=== PATIENT | male | born 1985 | race Caucasian/White ===

== ENCOUNTER 2022-07-29 11:37 | Emergency (ER) | payer SELFPAY ==
[~2022-07-29] VITALS: Ht 175.3 cm; Wt 103.0 kg
[~2022-07-29 11:37] MED LIST: NO MEDS
[2022-07-29 11:59] VITALS: BP 123/69
--- NOTE | 2022-07-29 12:43 | NUR ---
36M presents to ED with c/o bloody stool x4 days and intermittent ABD pain x1year. Pt reports bilateral upper quadrant, stabbing like, ABD pain. Pt reports noting dark red stool on Tuesday, and noted purely blood during a BM yesterday, intermittent diarrhea, last episode was last night. Pt denies taking meds, denies N/V, and fevers. Bowel sounds noted in all four quadrants, and abdomen soft and non tender upon palpation.
[2022-07-29 13:10] LABS: BASOPHILS % (AUTO) 0.4 % (0.0-2.0); EOSINOPHILS % (AUTO) 0.3 % (0.0-4.0); HEMATOCRIT 44.4 % (36-52); HEMOGLOBIN 14.9 g/dL (12.0-18.0); LYMPHOCYTES # (AUTO) 1.2 K/uL (2.0-11.5); LYMPHOCYTES % (AUTO) 12.2 % (20.5-51.1); MEAN CORPUSCULAR HEMOGLOBIN 30 pg (27-31); MEAN CORPUSCULAR HGB CONC 34 g/dL (33-37); MEAN CORPUSCULAR VOLUME 89.4 fL (80-94); MONOCYTES # (AUTO) 0.9 K/uL (0.8-1.0); MONOCYTES % (AUTO) 8.7 % (1.7-9.3); NEUTROPHILS # (AUTO) 7.9 K/uL (1.8-7.7); NEUTROPHILS % (AUTO) 78.4 % (42.2-75.2); PLATELET COUNT (AUTO) 250 K/uL (140-450); RED BLOOD CELL COUNT(AUTO) 4.97 MIL/uL (4.20-6.10); RED CELL DISTRIBUTION WIDTH 12.6 % (11.6-13.7); WHITE BLOOD COUNT (AUTO) 10.1 K/uL (4.8-10.8)
[2022-07-29 13:12] LABS: ALBUMIN 3.4 g/dL (3.4-5.0); ANION GAP 11.3 (8-16); CARBON DIOXIDE 29.9 mmol/L (21-32); CREATININE 1.2 mg/dL (0.6-1.3); POTASSIUM 3.2 mmol/L (3.5-5.1); TOTAL BILIRUBIN 0.3 mg/dL (0.0-1.0)
[2022-07-29] MEDS ORDERED: HYDR25SU91 RC (13:41)
[2022-07-29] MEDS ORDERED: TRAM-748 PO (13:43)
--- NOTE | 2022-07-29 13:58 | NUR ---
Patient discharged with v/s stable. Written and verbal after care instructions given and explained. Patient alert, oriented and verbalized understanding of instructions. Ambulatory with steady gait. All questions addressed prior to discharge. ID band removed. Patient advised to follow up with PMD. Rx of HYDROCORTISONE ACETATE AND TRAMADOL given. Patient educated on indication of medication including possible reaction and side effects. Opportunity to ask questions provided and answered.
== END 2022-07-29 13:58 | disposition home or self-care (01) ==
LOC: MED 11:37
DX: K62.5 Hemorrhage of anus and rectum (principal); F15.90 Other stimulant use, unspecified, uncomplicated; F12.90 Cannabis use, unspecified, uncomplicated; Z79.899 Other long term (current) drug therapy
CPT/HCPCS: 36415; 80053; 85025; 99283